=== PATIENT | female | born 1995 | race Caucasian/White ===

== ENCOUNTER 2024-10-27 05:41 | Emergency (ER) | payer OTHER ==
[~2024-10-27] VITALS: Ht 170.2 cm; Wt 70.8 kg
[2024-10-27 06:00] VITALS: O2SAT 98
[2024-10-27] MEDS ORDERED: ALBUTEROL SULFATE 2.5 MG/3 ML NEBU NEB ONE (06:00)
[2024-10-27] MEDS ORDERED: ALBUTEROL SULFATE 2.5 MG/3 ML NEBU ONE (06:07)
[2024-10-27] MEDS ORDERED: IPRATROPIUM BROMIDE 0.5 MG/2.5 ML NEBU ONE (06:08)
[2024-10-27] MEDS ORDERED: BUDE10.22 INH (06:13)
[2024-10-27] MEDS ORDERED: ALBU8.5H8 INH (06:13)
[2024-10-27 06:15] VITALS: O2SAT 99
[2024-10-27] MEDS: ALBUTEROL SULFATE 2.5 MG/3 ML NEBU NEB ONE (06:15)
[2024-10-27] MEDS: IPRATROPIUM BROMIDE 0.5 MG/2.5 ML NEBU NEB ONE (06:19)
[2024-10-27 06:28] VITALS: BP 120/68; TEMP 98; O2SAT 99
== END 2024-10-27 06:34 | disposition home or self-care (01) ==
LOC: ER 05:55
DX: J45.901 Unspecified asthma with (acute) exacerbation (principal); Z79.51 Long term (current) use of inhaled steroids
CPT/HCPCS: A4606; A4663; J3590; J7512